=== PATIENT | female | born 1990 | race American Indian/Alaskan Native ===

== ENCOUNTER 2017-03-30 22:09 | Emergency (ER) | payer BC, MEDICAID ==
[2017-03-30] MEDS ORDERED: NACL 0.9% 1000 ML 1,000 ML IV ONE ×2 (22:36→22:47)
[2017-03-30] MEDS ORDERED: ZOFRAN IV ONE ×2 (22:36→23:36)
--- NOTE | 2017-03-30 22:52 | Emergency Department Report ---
ED HPI - General Chief complaint: Vaginal Bleeding Stated complaint: VAGINAL BLEEDING Time Seen by Provider: 03/30/17 22:17 Source: patient, EMS Mode of arrival: Stretcher Limitations: Other - History of Present Illness Initial comments: 26-year-old female with no septic in past medical history presents to Hospital complaints of continued nausea and vomiting and intermittent lower abdominal cramping 2 days. Patient was seen at [facility] in [place] over the weekend for an elective . Patient states she did receive an ultrasound and she estimates that she was about 5 weeks . Patient was given several doses of Cytotec. She took one tablet while in the clinic on the and then took 4 pills intravaginally on the . Patient states she has mild increase in bleeding and cramping of one large clot. Since then patient has had minimal lower abdominal cramping and intermittent spotting. Patient complains of continued nausea, vomiting, and by mouth intake decrease since she has been . Symptoms have worsened slightly since taking Cytotec. Mild suprapubic pressure reported at this time. She has not been able to eat or drink much due to nausea and vomiting. This is patient's fifth . She has 2 children, history of one miscarriage, and this is her second elective . - Related Data Previous Rx's Medication Instructions Recorded Last Taken Type Potassium Chloride [K-Dur] 20 meq PO BID #6 tab 03/31/17 Unknown Rx Promethazine [Phenergan] 25 mg AR Q6HR PRN #20 supp.rect 03/31/17 Unknown Rx Allergies Allergy/AdvReac Type Severity Reaction Status Date / Time No Known Allergies Allergy Verified 01/24/14 14:29 ED Review of Systems ROS: Stated complaint: VAGINAL BLEEDING Other details as noted in HPI Comment: All other systems reviewed and negative Other: Constitutional: No fevers chills Eyes: No eye pain visual changes ENT: No ear pain or throat pain Neck: Denies pain Respiratory: Denies cough wheezing shortness of breath Cardiovascular: Denies chest pain, palpitations, syncope GI:as per hpi : as per hpi Musculoskeletal: Denies back pain Skin: Denies rash, lesions, erythema Neurologic: Denies headache, numbness, weakness Psychiatric: Denies suicidal ideation, hallucinations ED Past Medical Hx - Past Medical History Previous Medical History?: No Hx Hypertension: No Hx Diabetes: No Hx Deep Vein Thrombosis: No Hx Renal Disease: No Hx Sickle Cell Disease: No Hx Seizures: No Hx Asthma: No Hx HIV: No - Surgical History Past Surgical History?: Yes Additional Surgical History: - Social History Smoking Status: Never Smoker Substance Use Type: None - Medications Home Medications: Home Medications Medication Instructions Recorded Confirmed Last Taken Type Potassium Chloride [K-Dur] 20 meq PO BID #6 tab 03/31/17 Unknown Rx Promethazine [Phenergan] 25 mg AR Q6HR PRN #20 supp.rect 03/31/17 Unknown Rx ED Physical Exam - General Limitations: Other - Other Other exam information: General: No limitations, patient is alert in no acute distress Head exam: Atraumatic, normocephalic Eyes exam: Normal appearance ENT: I mucous membrane Neck exam: Normal inspection, full range of motion, no meningismus nontender Respiratory exam: Clear to auscultation bilateral, no wheezes, rales, crackles Cardiovascular: Mild tachycardia regular rhythm Abdomen: Soft, nondistended, mild suprapubic tenderness, with normal bowel sounds, no rebound, or guarding Extremity: Full range of motion normal inspection no deformity Back: Normal Inspection, full range of motion, no tenderness Neurologic: Alert, oriented x3, cranial nerves intact, no motor or sensory deficit Psychiatric: normal affect, normal mood Skin: Warm, dry, intact ED Course Vital Signs 03/30/17 03/30/17 03/30/17 22:12 22:15 22:31 Pulse Rate 101 H 98 H Respiratory 18 24 20 Rate Blood Pressure O2 Sat by Pulse 100 100 100 Oximetry 03/30/17 03/30/17 03/30/17 22:45 23:00 23:05 Pulse Rate 102 H 89 Respiratory 23 22 18 Rate Blood Pressure 121/78 O2 Sat by Pulse 100 100 98 Oximetry 03/30/17 03/30/17 03/31/17 23:15 23:30 00:19 Pulse Rate 84 88 84 Respiratory 18 27 H 13 Rate Blood Pressure 117/84 120/76 120/76 O2 Sat by Pulse 100 100 100 Oximetry 03/31/17 03/31/17 03/31/17 00:30 00:45 01:00 Pulse Rate 99 H 83 81 Respiratory 19 15 12 Rate Blood Pressure 123/82 128/88 132/83 O2 Sat by Pulse 100 100 100 Oximetry 06/03/31/17 03/31/17 01:15 01:30 01:45 Pulse Rate 89 87 98 H Respiratory 18 11 L 21 Rate Blood Pressure 118/75 131/84 126/83 O2 Sat by Pulse 100 100 100 Oximetry 03/31/17 03/31/17 03/31/17 02:00 02:15 02:30 Pulse Rate 95 H 96 H 96 H Respiratory 16 18 19 Rate Blood Pressure 116/77 114/75 107/80 O2 Sat by Pulse 100 100 100 Oximetry 03/31/17 02:45 Pulse Rate 102 H Respiratory 13 Rate Blood Pressure 112/78 O2 Sat by Pulse 100 Oximetry - Reevaluation(s) Reevaluation #1: 03/30/17 22:51 Zofran and normal saline initiated ultrasound and labs pending Reevaluation #2: 03/31/17 02:14 pt continues to feel nauseated after zofran 4 mg. Phenergan AR ordered Reevaluation #3: 03/31/17 04:35 Patient feeling better after receiving Phenergan AR. Nausea is resolved. Tolerating by mouth. Received total of 3 L of normal saline - Consultations Consultation #1: 03/31/17 02:14 case d/w with Dr Ivy cash application representative obstetrician and gynaecologist. advises to try to control gi sx and hydrate. No indication for obstetrician and gynaecologist surgical intervention ED Medical Decision Making - Lab Data Result diagrams: 03/30/17 22:40 03/30/17 22:40 Lab Results 03/30/17 03/30/17 03/30/17 Range/Units 22:40 22:40 22:40 WBC 7.5 (4.5-11.0) K/mm3 RBC 4.81 (3.65-5.03) M/mm3 Hgb 14.4 H (10.1-14.3) gm/dl Hct 41.1 (30.3-42.9) % MCV 86 (79-97) fl MCH 30 (28-32) pg MCHC 35 H (30-34) % RDW 13.1 L (13.2-15.2) % Plt Count 331 (140-440) K/mm3 Lymph % (Auto) 16.7 (13.4-35.0) % [place] % (Auto) 8.0 H (0.0-7.3) % Eos % (Auto) 0.1 (0.0-4.3) % Baso % (Auto) 0.6 (0.0-1.8) % Lymph # 1.3 (1.2-5.4) K/mm3 [place] # 0.6 (0.0-0.8) K/mm3 Eos # 0.0 (0.0-0.4) K/mm3 Baso # 0.0 (0.0-0.1) K/mm3 Seg Neutrophils % 74.6 H (40.0-70.0) % Seg Neutrophils # 5.6 (1.8-7.7) K/mm3 Sodium (137-145) mmol/L Potassium (3.6-5.0) mmol/L Chloride (98-107) mmol/L Carbon Dioxide (22-30) mmol/L Anion Gap mmol/L BUN (7-17) mg/dL Creatinine (0.7-1.2) mg/dL Estimated GFR ml/min BUN/Creatinine Ratio % Glucose (65-100) mg/dL Calcium (8.4-10.2) mg/dL Magnesium (1.7-2.3) mg/dL Total Bilirubin (0.1-1.2) mg/dL Direct Bilirubin (0-0.2) mg/dL Indirect Bilirubin mg/dL AST (5-40) units/L ALT (7-56) units/L Alkaline Phosphatase (35-129) units/L Total Protein (6.3-8.2) g/dL Albumin (3.9-5) g/dL Albumin/Globulin Ratio % Lipase (13-60) units/L HCG, Quant 9106 H (0-4) mIU/mL Urine Color (Yellow) Urine Turbidity (Clear) Urine pH (5.0-7.0) Ur Specific Mitchell (1.003-1.030) Urine Protein (Negative) mg/dL Urine Glucose (UA) (Negative) mg/dL Urine Ketones (Negative) mg/dL Urine Blood (Negative) Urine Nitrite (Negative) Urine Bilirubin (Negative) Urine Urobilinogen (<2.0) mg/dL Ur Leukocyte Esterase (Negative) Urine WBC (Auto) (0.0-6.0) /HPF Urine RBC (Auto) (0.0-6.0) /HPF U Epithel Cells (Auto) (0-13.0) /HPF Urine Mucus /HPF Blood Type O POSITIVE Antibody Screen TNR BETH Antibody Screen Negative 03/30/17 03/30/17 03/30/17 Range/Units 22:40 22:40 22:40 WBC (4.5-11.0) K/mm3 RBC (3.65-5.03) M/mm3 Hgb (10.1-14.3) gm/dl Hct (30.3-42.9) % MCV (79-97) fl MCH (28-32) pg MCHC (30-34) % RDW (13.2-15.2) % Plt Count (140-440) K/mm3 Lymph % (Auto) (13.4-35.0) % [place] % (Auto) (0.0-7.3) % Eos % (Auto) (0.0-4.3) % Baso % (Auto) (0.0-1.8) % Lymph # (1.2-5.4) K/mm3 [place] # (0.0-0.8) K/mm3 Eos # (0.0-0.4) K/mm3 Baso # (0.0-0.1) K/mm3 Seg Neutrophils % (40.0-70.0) % Seg Neutrophils # (1.8-7.7) K/mm3 Sodium 135 L (137-145) mmol/L Potassium 2.8 L* (3.6-5.0) mmol/L Chloride 91.8 L (98-107) mmol/L Carbon Dioxide 16 L (22-30) mmol/L Anion Gap 30 mmol/L BUN 24 H (7-17) mg/dL Creatinine 0.7 (0.7-1.2) mg/dL Estimated GFR > 60 ml/min BUN/Creatinine Ratio 34.28 % Glucose 97 (65-100) mg/dL Calcium 9.6 (8.4-10.2) mg/dL Magnesium 2.50 H (1.7-2.3) mg/dL Total Bilirubin 1.10 (0.1-1.2) mg/dL Direct Bilirubin 0.2 (0-0.2) mg/dL Indirect Bilirubin 0.9 mg/dL AST 11 (5-40) units/L ALT 12 (7-56) units/L Alkaline Phosphatase 43 (35-129) units/L Total Protein 8.1 (6.3-8.2) g/dL Albumin 4.9 (3.9-5) g/dL Albumin/Globulin Ratio 1.5 % Lipase 11 L (13-60) units/L HCG, Quant (0-4) mIU/mL Urine Color (Yellow) Urine Turbidity (Clear) Urine pH (5.0-7.0) Ur Specific Mitchell (1.003-1.030) Urine Protein (Negative) mg/dL Urine Glucose (UA) (Negative) mg/dL Urine Ketones (Negative) mg/dL Urine Blood (Negative) Urine Nitrite (Negative) Urine Bilirubin (Negative) Urine Urobilinogen (<2.0) mg/dL Ur Leukocyte Esterase (Negative) Urine WBC (Auto) (0.0-6.0) /HPF Urine RBC (Auto) (0.0-6.0) /HPF U Epithel Cells (Auto) (0-13.0) /HPF Urine Mucus /HPF Blood Type Antibody Screen BETH Antibody Screen 03/31/17 Range/Units 00:02 WBC (4.5-11.0) K/mm3 RBC (3.65-5.03) M/mm3 Hgb (10.1-14.3) gm/dl Hct (30.3-42.9) % MCV (79-97) fl MCH (28-32) pg MCHC (30-34) % RDW (13.2-15.2) % Plt Count (140-440) K/mm3 Lymph % (Auto) (13.4-35.0) % [place] % (Auto) (0.0-7.3) % Eos % (Auto) (0.0-4.3) % Baso % (Auto) (0.0-1.8) % Lymph # (1.2-5.4) K/mm3 [place] # (0.0-0.8) K/mm3 Eos # (0.0-0.4) K/mm3 Baso # (0.0-0.1) K/mm3 Seg Neutrophils % (40.0-70.0) % Seg Neutrophils # (1.8-7.7) K/mm3 Sodium (137-145) mmol/L Potassium (3.6-5.0) mmol/L Chloride (98-107) mmol/L Carbon Dioxide (22-30) mmol/L Anion Gap mmol/L BUN (7-17) mg/dL Creatinine (0.7-1.2) mg/dL Estimated GFR ml/min BUN/Creatinine Ratio % Glucose (65-100) mg/dL Calcium (8.4-10.2) mg/dL Magnesium (1.7-2.3) mg/dL Total Bilirubin (0.1-1.2) mg/dL Direct Bilirubin (0-0.2) mg/dL Indirect Bilirubin mg/dL AST (5-40) units/L ALT (7-56) units/L Alkaline Phosphatase (35-129) units/L Total Protein (6.3-8.2) g/dL Albumin (3.9-5) g/dL Albumin/Globulin Ratio % Lipase (13-60) units/L HCG, Quant (0-4) mIU/mL Urine Color Yellow (Yellow) Urine Turbidity Clear (Clear) Urine pH 5.0 (5.0-7.0) Ur Specific Mitchell 1.029 (1.003-1.030) Urine Protein 100 mg/dl (Negative) mg/dL Urine Glucose (UA) Neg (Negative) mg/dL Urine Ketones 80 (Negative) mg/dL Urine Blood Mod (Negative) Urine Nitrite Neg (Negative) Urine Bilirubin Neg (Negative) Urine Urobilinogen < 2.0 (<2.0) mg/dL Ur Leukocyte Esterase Neg (Negative) Urine WBC (Auto) 3.0 (0.0-6.0) /HPF Urine RBC (Auto) 7.0 (0.0-6.0) /HPF U Epithel Cells (Auto) 2.0 (0-13.0) /HPF Urine Mucus 3+ /HPF Blood Type Antibody Screen BETH Antibody Screen - Radiology Data Radiology results: report reviewed Transvaginal ultrasound: Concerning for in progress. Heterogeneous material within the endometrial canal. No IUP or adnexal masses. Possible left corpus luteum cyst measuring 1.3 cm - Differential Diagnosis nausea and vomiting in /hyperemesis, medication effect, Critical Care Time: No Critical care attestation.: If time is entered above; I have spent that time in minutes in the direct care of this critically ill patient, excluding procedure time. ED Disposition Clinical Impression: Nausea and vomiting during , Elective , Hypokalemia Disposition: DC-01 TO HOME OR SELFCARE Is pt being admited?: No Does the pt Need Aspirin: No Condition: Stable Instructions: Spontaneous Miscarriage (ED), Hyperemesis Gravidarum (ED), Hypokalemia (ED) Additional Instructions: Ultrasound shows that you are in the process of aborting your . You have been provided discharge diagnoses for spontaneous miscarriage since we do not have elective discharge instructions available. Please return if symptoms worsen as indicated by these instructions. Otherwise take the Phenergan and potassium pills as prescribed. Return if symptoms worsen you are unable to keep liquids, pills, or food down. Follow up with your DEVELOPMENT MANAGER clinic. Prescriptions: Potassium Chloride [K-Dur] 20 meq PO BID #6 tab Promethazine [Phenergan] 25 mg AR Q6HR PRN #20 supp.rect PRN Reason: Nausea And Vomiting Referrals: your, obstetrician and gynaecologist [Other] - 2-3 Days Time of Disposition: 04:40
[2017-03-30 23:13] LABS: Basophils % (Auto) 0.6 % (0.0-1.8); Eosinophils % (Auto) 0.1 % (0.0-4.3); Hematocrit 41.1 % (30.3-42.9); Hemoglobin 14.4 gm/dl (10.1-14.3); Mean Corpuscular HGB Conc 35 % (30-34); Mean Corpuscular Hemoglobin 30 pg (28-32); Mean Corpuscular Volume 86 fl (79-97); Platelet Count 331 K/mm3 (140-440); Red Blood Count 4.81 M/mm3 (3.65-5.03); Red Cell Distribution Width 13.1 % (13.2-15.2); White Blood Count 7.5 K/mm3 (4.5-11.0)
[2017-03-30 23:34] LABS: Albumin 4.9 g/dL (3.9-5); Albumin/Globulin Ratio 1.5 %; Bilirubin,Direct 0.2 mg/dL (0-0.2); Bilirubin,Indirect 0.9 mg/dL; Bilirubin,Total 1.1 mg/dL (0.1-1.2); Total Protein 8.1 g/dL (6.3-8.2)
[2017-03-30 23:52] LABS: Anion Gap 30 mmol/L; BUN/Creatinine Ratio 34.28; Blood Urea Nitrogen 24 mg/dL (7-17); Calcium 9.6 mg/dL (8.4-10.2); Carbon Dioxide 16 mmol/L (22-30); Chloride 91.8 mmol/L (98-107); Glucose 97 mg/dL (65-100); Sodium 135 mmol/L (137-145)
[2017-03-30 23:55] LABS: Potassium 2.8 mmol/L (3.6-5.0)
[2017-03-31] MEDS ORDERED: NACL 0.9% 1000 ML 1,000 ML IV ONE (00:12)
[2017-03-31] MEDS ORDERED: K-DUR PO ONE (00:12)
[2017-03-31 00:25] LABS: Bilirubin,Urine NEG (Negative); Blood,Urine MOD (Negative); Ketones,Urine 80 mg/dL (Negative); Leukocyte Esterase,Urine NEG (Negative); Mucus,Urine 3+ /HPF; Nitrite,Urine NEG (Negative); Urobilinogen,Urine < 2.0 mg/dL (<2.0)
--- NOTE | 2017-03-31 00:51 | Ultrasound Report ---
FINAL REPORT EXAM: US OB TRANSVAGINAL HISTORY: recent arbortion pill, n,v, bleeding, pain COMPARISON: None available. TECHNIQUE: Several real-time grayscale and color Doppler images were obtained. Transvaginal exam. FINDINGS: The uterus measures 9.6 x 6.2 x 8.0 centimeters. The uterus is retroverted. Endometrial stripe is thickened. This heterogeneous material within the endometrial canal. This could reflect in progress. No IUP or adnexal masses are demonstrated. Right ovary measures 2.5 x 1.0 x 2.3 centimeters. Left ovary measures 2.7 x 2.0 x 2.2 centimeters. Thick-walled ovarian cyst measuring 1.3 centimeters. This may reflect corpus luteum. There is gross vascular flow to the ovaries. IMPRESSION: Findings concerning for progress. There is heterogeneous material within the endometrial canal. No IUP or adnexal masses are demonstrated. Possible left corpus luteal cyst measuring 1.3 centimeters. Correlation with serial beta HCGs and followup exam is suggested.
[2017-03-31] MEDS ORDERED: PHENERGAN PR ONE (02:09)
[2017-03-31 05:47] VITALS: BP 106/68
--- NOTE | 2017-03-31 09:10 | Ultrasound Report ---
FINAL REPORT PROCEDURE: US OB \T\lt; = 14 WEEKS FETUS TECHNIQUE: Transabdominal grayscale and color imaging of the pelvis was performed. HISTORY: recent arbortion pill, n,v, bleeding, pain COMPARISON: None FINDINGS: The uterus measures 9 x 4.3 x 5.3 centimeters transabdominally. The endometrial stripe is 2.1 centimeters thick, heterogeneous. There is no free fluid. The ovaries were not visualized transabdominally. IMPRESSION: Thickened heterogeneous endometrial stripe without identified yolk sac/ pole. Missed /retained products of conception/ in progress are not excluded. Ovaries were not seen. Please see transvaginal report. Close clinical follow-up to include serial beta HCGs as well as follow-up ultrasound is recommended.
== END 2017-03-31 05:00 | disposition home or self-care (01) ==
LOC: ED 22:09
DX: O21.9 Vomiting of pregnancy, unspecified (principal); O07.4 Failed attempted termination of pregnancy without complication; E87.6 Hypokalemia
CPT/HCPCS: 36415; 76801; 76817; 80048; 80074; 81001; 82962; 83690; 83735; 84702; 85025; 86850; 86900; 86901; 93005; 93010; 96361; 96374; 96376; 99285; J2405; J7030

== ENCOUNTER 2019-10-08 08:32 | Emergency (ER) | payer BC, MEDICAID ==
[2019-10-08 08:45] VITALS: BP 123/89
[2019-10-08 09:57] LABS: Alanine Aminotransferase 11 units/L (7-56); Albumin 4.2 g/dL (3.9-5); BUN/Creatinine Ratio 14; Blood Urea Nitrogen 7 mg/dL (7-17); Calcium 8.8 mg/dL (8.4-10.2); Hemolysis Index 2
[2019-10-08 10:05] LABS: Eosinophils # (Auto) 0.1 K/mm3 (0.0-0.4); Eosinophils % (Auto) 4.1 % (0.0-4.3); Hematocrit 39.1 % (30.3-42.9); Hemoglobin 13.1 gm/dl (10.1-14.3); Lymphocytes # (Auto) 1.2 K/mm3 (1.2-5.4); Lymphocytes % (Auto) 35.7 % (13.4-35.0); Mean Corpuscular HGB Conc 33 % (30-34); Mean Corpuscular Volume 88 fl (79-97); Monocytes # (Auto) 0.3 K/mm3 (0.0-0.8); Platelet Count 276 K/mm3 (140-440); Red Blood Count 4.43 M/mm3 (3.65-5.03); Red Cell Distribution Width 14.4 % (13.2-15.2)
[2019-10-08 10:21] LABS: Bilirubin,Urine NEG (Negative); Blood,Urine NEG (Negative); Color,Urine Yellow (Yellow); Mucus,Urine FEW /HPF; Protein,Urine <15 mg/dL mg/dL (Negative); Urobilinogen,Urine < 2.0 mg/dL (<2.0)
[2019-10-08 10:23] LABS: HCG Qualitative,Urine Negative (Negative)
[2019-10-08] MEDS ORDERED: DICYCLOMINE 20 MG TAB PO ONE (11:14)
--- NOTE | 2019-10-08 11:16 | Emergency Department Report ---
HPI - General Chief Complaint: Abdominal Pain Time Seen by Provider: 10/08/19 10:53 - HPI HPI: 29-year-old female presents to the emergency department with complaint of a 5-6 day history of some right-sided abdominal cramping pain. Patient says that she finished with her menstrual cycle a few days ago. She denies any dysuria, vaginal discharge, fever but did have an episode of nausea with vomiting this morning. She tried some Advil for her symptoms without any relief. Otherwise she denies any past history. No PCP or CHART READER. ED Past Medical Hx - Past Medical History Hx Hypertension: No Hx Diabetes: No Hx Deep Vein Thrombosis: No Hx Renal Disease: No Hx Sickle Cell Disease: No Hx Seizures: No Hx Asthma: No Hx HIV: No - Surgical History Additional Surgical History: - Social History Smoking Status: Never Smoker - Medications Home Medications: Home Medications Medication Instructions Recorded Confirmed Last Taken Type Potassium Chloride [K-Dur] 20 meq PO BID #6 tab 03/31/17 Unknown Rx Promethazine [Phenergan] [address] Q6HR PRN #20 supp.rect 03/31/17 Unknown Rx Dicyclomine [Bentyl] 10 mg PO TID PRN #20 capsule 10/08/19 Unknown Rx ED Review of Systems ROS: Stated complaint: ABDOMINAL CRAMPS Other details as noted in HPI Comment: All other systems reviewed and negative Constitutional: denies: chills, fever Respiratory: denies: shortness of breath Cardiovascular: denies: chest pain Gastrointestinal: abdominal pain, nausea, vomiting. denies: diarrhea Genitourinary: denies: dysuria, discharge Musculoskeletal: denies: back pain, arthralgia Physical Exam - Physical Exam Vital Signs: Vital Signs 10/08/19 08:43 Temperature 97.7 F Pulse Rate 75 Respiratory 16 Rate Blood Pressure 123/89 O2 Sat by Pulse 100 Oximetry Physical Exam: GENERAL: The patient is well-developed well-nourished. HEENT: Normocephalic. Atraumatic. Patient has moist mucous membranes. EYES: Extraocular motions are intact. NECK: Supple. Trachea is midline CHEST/LUNGS: Clear to auscultation. There is no respiratory distress noted. HEART/CARDIOVASCULAR: Regular. There is no tachycardia. ABDOMEN: Abdomen is soft. Mild left lower quadrant abdominal tenderness to palpation. No guarding. Patient has normal bowel sounds. There is no abdominal distention. SKIN: Skin is warm and dry. NEURO: The patient is awake, alert, and oriented. The patient is cooperative. The patient has no focal neurologic deficits. Normal speech. MUSCULOSKELETAL: There is no tenderness or deformity. There is no evidence of acute injury. ED Course Vital Signs 10/08/19 08:43 Temperature 97.7 F Pulse Rate 75 Respiratory 16 Rate Blood Pressure 123/89 O2 Sat by Pulse 100 Oximetry ED Medical Decision Making - Lab Data Result diagrams: 10/08/19 08:52 10/08/19 08:52 - Radiology Data Radiology results: image reviewed interpreted by me: Abdominal x-ray shows nonspecific bowel gas - Medical Decision Making This patient presents to the emergency department with some lower abdominal and/or pelvic cramping that has been going on for the better part of a week. Her labs have been unremarkable. CBC, metabolic panel, urinalysis, . Abdominal x-ray shows nonspecific nonobjective bowel gas. She was given a dose of Bentyl and upon reevaluation she is feeling improved. Vital signs stable throughout her ED course. The patient be discharged home with a perception for Bentyl, referrals for primary care and gastroenterology. She will return to the ER with any worsening of her symptoms or any acute distress. - Differential Diagnosis gastroenteritis, , gas pains, colitis Critical Care Time: No Critical care attestation.: If time is entered above; I have spent that time in minutes in the direct care of this critically ill patient, excluding procedure time. ED Disposition Clinical Impression: Abdominal cramping Disposition: - TO HOME OR SELFCARE Is pt being admited?: No Condition: Stable Instructions: Abdominal Pain (ED) Additional Instructions: Please follow-up with a primary care physician in the next few days. I'm also giving you a referral for a local assistant head cashier, Dr. Pollack, to follow up regarding her abdominal pain. Return to the emergency Department with any worsening of your symptoms or any acute distress. Prescriptions: Dicyclomine [Bentyl] 10 mg PO TID PRN #20 capsule PRN Reason: Pain , Severe (7-10) Referrals: ERVIN MCCARTNEY MD [Staff Physician] - 3-5 Days [facility] [Outside] - 3-5 Days RYAN POLLACK MD [Staff Physician] - 3-5 Days Time of Disposition: 11:56
--- NOTE | 2019-10-08 11:39 | XRay Report ---
ABDOMEN 2 VIEW(S) INDICATION / CLINICAL INFORMATION: abd pain. COMPARISON: None available. FINDINGS: TUBES / LINES: None. BOWEL GAS PATTERN: Moderate colonic stool. No bowel distention or suspicious calcification. ADDITIONAL FINDINGS: No free air. IMPRESSION: Unremarkable abdomen. Signer Name: Joselo Marie MD Signed: 10/08/2019 11:35 AM Workstation Name: [id number]
== END 2019-10-08 12:16 | disposition home or self-care (01) ==
LOC: ED 08:32
DX: R10.9 Unspecified abdominal pain (principal); Z79.899 Other long term (current) drug therapy
CPT/HCPCS: 36415; 74019; 80053; 81001; 81025; 85025

== ENCOUNTER 2019-11-17 10:52 | Emergency (ER) | payer BC ==
[2019-11-17 11:06] VITALS: BP 117/83
--- NOTE | 2019-11-17 12:18 | Emergency Department Report ---
Chief Complaint: Head Injury Stated Complaint: HIT HEAD Time Seen by Provider: 11/17/19 12:07 - HPI History of Present Illness: Patient is a 29-year-old F Stateless female who struck her head on a air conditioning unit at her child's daycare center this morning. Patient states that she briefly felt dizzy but now does has a numb sensation on her forehead. She denies nausea vomiting severe headache uncoordinated gait or syncope. - ROS Review of Systems: All other systems are reviewed and are negative - Exam Vital Signs: Vital Signs 11/17/19 11:04 Temperature 98.2 F Pulse Rate 82 Respiratory 16 Rate Blood Pressure 117/83 O2 Sat by Pulse 100 Oximetry Physical Exam: Patient is alert and oriented x3 in no acute distress. There is no actual physical signs of severe closed head injury. There is no contusion to the forehead or swelling. Patient has very minimal tenderness over the frontal region. No depressed skull fractures. Patient has a normal gait. MSE screening note: Focused history and physical exam performed. Due to findings the following was ordered: ED Medical Decision Making - Medical Decision Making Patient suffered a minor head injury this morning. Patient has no actual medical emergent condition at this time. Is been suggested the patient take Tylenol [id number] as needed and patient will be discharged to follow-up with community resources. ED Disposition for MSE Clinical Impression: Closed head injury Qualifiers: Encounter type: initial encounter Qualified Code(s): S09.90XA - Unspecified injury of head, initial encounter Disposition: MED SCREENING EXAM-LEFT Is pt being admited?: No Does the pt Need Aspirin: No Condition: Stable Referrals: PEYTON OSBORN MD [Referring] - 3-5 Days Time of Disposition: 12:17
== END 2019-11-17 12:24 | disposition left against medical advice (07) ==
LOC: ED 10:52
DX: S09.90XA Unspecified injury of head, initial encounter (principal); R42 Dizziness and giddiness; R20.0 Anesthesia of skin; X58.XXXA Exposure to other specified factors, initial encounter; Y93.89 Activity, other specified; Y92.89 Other specified places as the place of occurrence of the external cause; Y99.8 Other external cause status
CPT/HCPCS: 99281

== ENCOUNTER 2019-11-24 21:24 | Emergency (ER) | payer BC ==
[2019-11-24 21:41] VITALS: BP 142/99
--- NOTE | 2019-11-24 22:03 | Emergency Department Report ---
Blank Doc - Documentation Documentation: 29-year-old female that presents with chest pain. Deneis any radiation. denies any SOB. This initial assessment/diagnostic orders/clinical plan/treatment(s) is/are subject to change based on patient's health status, clinical progression and re- assessment by fellow clinical providers in the ED. Further treatment and workup at subsequent clinical providers discretion. Patient/guardians urged not to elope from the ED as their condition may be serious if not clinically assessed and managed. Initial orders include: 1- Patient sent to [facility] for further evaluation and treatment 2- xrays 3- EKG
--- NOTE | 2019-11-24 22:51 | XRay Report ---
CHEST 2 VIEWS INDICATION: cp. COMPARISON: none FINDINGS: Support devices: None. Heart: Within normal limits. Lungs: No acute air space or interstitial disease. Pleura: No significant pleural effusion. No pneumothorax. Additional findings: None. IMPRESSION: 1. No acute findings. Signer Name: Dimitri Sonw MD Signed: 11/24/2019 10:46 PM Workstation Name: [id number]
--- NOTE | 2019-11-25 00:53 | Emergency Department Report ---
Chief Complaint: Chest Pain Stated Complaint: CHEST AND HEAD PAIN Time Seen by Provider: 11/24/19 22:02 - HPI History of Present Illness: 29-year-old -Surinames[place] female presents to the emergency room for scalp tenderness to the right top of head and intermittent left chest pain x2 days. Patient states that she had 2 episodes of sharp pain that lasts less than 10 seconds. Patient denied any radiation denied any nausea vomiting denied any weaknesses no blurred vision. Patient taken nothing for pain. Patient does admit to smoking weed. Patient denies taking any long-term medications no known drug allergies no past medical history. - Exam Vital Signs: Vital Signs 11/24/19 21:39 Temperature 98.4 F Pulse Rate 70 Respiratory 18 Rate Blood Pressure 142/99 O2 Sat by Pulse 100 Oximetry MSE screening note: Focused history and physical exam performed. Due to findings the following was ordered: 29-year-old -Surinames[place] female presents to the emergency room for scalp tenderness to the right top of head and intermittent left chest pain x2 days. Patient states that she had 2 episodes of sharp pain that lasts less than 10 seconds. Patient denied any radiation denied any nausea vomiting denied any weaknesses no blurred vision. Patient taken nothing for pain. Patient does admit to smoking weed. Patient denies taking any long-term medications no known drug allergies no past medical history. EKG is normal. chest x-ray negative for any acute findings. Discussed the patient she can take Tylenol or ibuprofen for scalp tenderness and pain. Patient is to follow back up with her primary care provider. ED Disposition for [facility] [place] Clinical Impression: Scalp tenderness, Atypical chest pain Disposition: MED SCREENING EXAM-LEFT Is pt being admited?: No Does the pt Need Aspirin: No Condition: Stable Instructions: Chest Pain (ED) Additional Instructions: EKG is normal. chest x-ray negative for any acute findings. Discussed the patient she can take Tylenol or ibuprofen for scalp tenderness and pain. Patient is to follow back up with her primary care provider. Referrals: PEYTON OSBORN MD [Primary Care Provider] - 3-5 Days
== END 2019-11-25 01:04 | disposition left against medical advice (07) ==
LOC: ED 21:24
DX: R20.0 Anesthesia of skin (principal); R07.89 Other chest pain
CPT/HCPCS: 71046; 93005; 93010

== ENCOUNTER 2020-01-17 01:49 | Emergency (ER) | payer BC ==
[2020-01-17 01:56] VITALS: BP 119/82
[2020-01-17] MEDS ORDERED: IBUPROFEN 800 MG TAB PO ONE (02:50)
--- NOTE | 2020-01-17 02:53 | Emergency Department Report ---
- General Chief Complaint: Wound/Laceration Stated Complaint: LIP BUSTED Time Seen by Provider: 01/17/20 02:36 Source: patient Mode of arrival: Ambulatory Limitations: No Limitations - History of Present Illness Initial Comments: Ms. Wallis is a 29-year-old -[place] female who presents for left lower right lower lip laceration. She states she fell and bit her lip wound is less than 1 cm bleeding was controlled by direct pressure wound does not cross the vermilion border. However "patient is requesting 1 suture. This is a reasonable request. There is no deep laceration no deformity Onset/Timin -: hour(s), month(s), This evening Location: face Place: home, outdoors Patient Tetanus UTD: Yes Context: accidental Associated Symptoms: none, pain - Related Data Previous Rx's Medication Instructions Recorded Last Taken Type Potassium Chloride [K-Dur] 20 meq PO BID #6 tab 03/31/17 Unknown Rx Promethazine [Phenergan] 25 mg IN Q6HR PRN #20 supp.rect 03/31/17 Unknown Rx Dicyclomine [Bentyl] 10 mg PO TID PRN #20 capsule 10/08/19 Unknown Rx Ibuprofen [Motrin 800 MG tab] 800 mg PO Q8HR PRN #30 tablet 01/17/20 Unknown Rx Allergies Allergy/AdvReac Type Severity Reaction Status Date / Time No Known Allergies Allergy Verified 01/24/14 14:29 ED Review of Systems ROS: Stated complaint: LIP BUSTED Other details as noted in HPI Constitutional: denies: chills, fever Eyes: denies: eye pain, eye discharge, vision change ENT: denies: ear pain, throat pain Respiratory: denies: cough, shortness of breath, wheezing Cardiovascular: denies: chest pain, palpitations Endocrine: no symptoms reported Gastrointestinal: denies: abdominal pain, nausea, diarrhea Genitourinary: denies: urgency, dysuria, discharge Musculoskeletal: denies: back pain, joint swelling, arthralgia Skin: denies: rash, lesions Neurological: denies: headache, weakness, paresthesias Psychiatric: denies: anxiety, depression Hematological/Lymphatic: denies: easy bleeding, easy bruising ED Past Medical Hx - Past Medical History Previous Medical History?: No Hx Hypertension: No Hx Diabetes: No Hx Deep Vein Thrombosis: No Hx Renal Disease: No Hx Sickle Cell Disease: No Hx Seizures: No Hx Asthma: No Hx HIV: No - Surgical History Past Surgical History?: Yes Additional Surgical History: - Social History Smoking Status: Current Every Day Smoker - Medications Home Medications: Home Medications Medication Instructions Recorded Confirmed Last Taken Type Potassium Chloride [K-Dur] 20 meq PO BID #6 tab 03/31/17 Unknown Rx Promethazine [Phenergan] 25 mg IN Q6HR PRN #20 supp.rect 03/31/17 Unknown Rx Dicyclomine [Bentyl] 10 mg PO TID PRN #20 capsule 10/08/19 Unknown Rx Ibuprofen [Motrin 800 MG tab] 800 mg PO Q8HR PRN #30 tablet 01/17/20 Unknown Rx ED Physical Exam - General Limitations: No Limitations General appearance: alert, in no apparent distress - Head Head exam: Present: normocephalic, normal inspection - Expanded Head Exam Expanded Head exam: Present: laceration, abrasion, contusion, general tenderness. Absent: hematoma, racoon eyes, joseph's sign, tenderness of temporal artery, CSF rhinorrhea - Eye Eye exam: Present: normal appearance, PERRL, EOMI. Absent: scleral icterus, conjunctival injection Pupils: Present: normal accommodation, irregular - ENT ENT exam: Present: normal exam, normal orophraynx, mucous membranes moist, normal external ear exam - Neck Neck exam: Present: normal inspection - Respiratory Respiratory exam: Present: normal lung sounds bilaterally. Absent: respiratory distress, wheezes, rhonchi, chest wall tenderness - Cardiovascular Cardiovascular Exam: Present: regular rate, normal rhythm, normal heart sounds. Absent: systolic murmur, diastolic murmur, rubs, gallop - GI/Abdominal GI/Abdominal exam: Present: soft, normal bowel sounds. Absent: distended, tenderness, rebound, organomegaly, mass, bruit, pulsatile mass, hernia - Extremities Exam Extremities exam: Present: normal inspection, full ROM, normal capillary refill. Absent: tenderness - Back Exam Back exam: Present: normal inspection, full ROM. Absent: tenderness, CVA tenderness (R), CVA tenderness (L), muscle spasm - Neurological Exam Neurological exam: Present: alert, oriented X3, CN II-XII intact, normal gait, reflexes normal. Absent: motor sensory deficit - Psychiatric Psychiatric exam: Present: normal affect, normal mood - Skin Skin exam: Present: warm, dry, intact, normal color. Absent: rash ED Course Vital Signs 01/17/20 01:51 Temperature 98.1 F Pulse Rate 98 H Respiratory 18 Rate Blood Pressure 119/82 O2 Sat by Pulse 100 Oximetry - Laceration /Wound Repair Right Lower Face Wound Location: mouth (lip ) Wound Length (cm): 1 (less than 1 cm ) Wound's Depth, Shape: superficial Wound Explored: clean Irrigated w/ Saline (ccs): 10 Betadine Prep?: No Anesthesia: 1% Lidocaine Wound Debrided: minimal Wound Repaired With: sutures Suture Size/Type: 6:0, nylon Layer Closure?: No Sterile Dressing Applied?: No Progress: Right lower lip laceration. Wound cleaned with sterile saline x10 cc anesthesia with 1% lidocaine x0.5 cc wound closed with Vicryl 4.01 suture. Edges are well approximated wound does not cross the vermilion border. Patient will follow-up with primary care in 2 days for wound check. Will DC to home for NSAIDs for pain, last tetanus 5 years ago., Patient DC'd home at this time ED Medical Decision Making - Medical Decision Making Lower lip laceration repaired with sutures x1 , patient tolerated procedure with minimal distress. Edges are well approximated . See procedure note patient given wound care instructions. Patient will follow-up with PCP in 2 to 3 days for wound check. Patient verbalizes agreement and understanding with discharge plan patient will be DC'd to home in stable condition at this time Critical care attestation.: If time is entered above; I have spent that time in minutes in the direct care of this critically ill patient, excluding procedure time. ED Disposition Clinical Impression: Laceration of lip Qualifiers: Encounter type: initial encounter Qualified Code(s): S01.511A - Laceration wit hout foreign body of lip, initial encounter Disposition: DC-01 TO HOME OR SELFCARE Is pt being admited?: No Does the pt Need Aspirin: No Condition: Stable Instructions: Laceration (ED) Prescriptions: Ibuprofen [Motrin 800 MG tab] 800 mg PO Q8HR PRN #30 tablet PRN Reason: pain Referrals: MASON PAINTING MD [Staff Physician] - 3-5 Days Forms: Work/School Release Form(ED) Time of Disposition: 03:26
== END 2020-01-17 03:37 | disposition home or self-care (01) ==
LOC: ED 01:49
DX: S01.511A Laceration without foreign body of lip, initial encounter (principal); F17.200 Nicotine dependence, unspecified, uncomplicated; Z79.1 Long term (current) use of non-steroidal anti-inflammatories (NSAID); Z79.899 Other long term (current) drug therapy; Z98.890 Other specified postprocedural states; W19.XXXA Unspecified fall, initial encounter; Y93.89 Activity, other specified; Y92.009 Unspecified place in unspecified non-institutional (private) residence as the place of occurrence of the external cause; Y99.8 Other external cause status

== ENCOUNTER 2020-12-20 03:21 | Emergency (ER) | payer BC ==
[2020-12-20] MEDS ORDERED: FAMOTIDINE 20 MG TAB PO ONE (03:54)
[2020-12-20] MEDS ORDERED: METOCLOPRAMIDE 10 MG TAB PO ONE (03:54)
[2020-12-20] MEDS ORDERED: LIDOCAINE VISCOUS 2% 15 ML ORAL LIQD PO ONE (03:56)
[2020-12-20] MEDS ORDERED: ALUM-MAG HYDROXIDE-SIMETHICONE 200-200-20MG/5ML ORAL LIQD 30 ML PO ONE ×2 (03:56→03:58)
[2020-12-20 04:41] LABS: Basophils % (Auto) 0.6 % (0.0-1.8); Eosinophils # (Auto) 0.1 K/mm3 (0.0-0.4); Eosinophils % (Auto) 1.5 % (0.0-4.3); Hematocrit 31.5 % (30.3-42.9); Hemoglobin 11.1 gm/dl (10.1-14.3); Lymphocytes % (Auto) 24.9 % (13.4-35.0); Mean Corpuscular HGB Conc 35 % (30-34); Mean Corpuscular Volume 90 fl (79-97); Monocytes # (Auto) 0.6 K/mm3 (0.0-0.8); Monocytes % (Auto) 7.3 % (0.0-7.3); Platelet Count 238 K/mm3 (140-440); Red Blood Count 3.52 M/mm3 (3.65-5.03); Red Cell Distribution Width 13.4 % (13.2-15.2)
[2020-12-20 04:46] LABS: Bilirubin,Urine NEG (Negative); Blood,Urine NEG (Negative); Color,Urine Yellow (Yellow); Mucus,Urine FEW /HPF; Protein,Urine <15 mg/dL mg/dL (Negative); RBC,Urine < 1.0 /HPF (0.0-6.0); Urobilinogen,Urine < 2.0 mg/dL (<2.0)
[2020-12-20 05:02] LABS: Alanine Aminotransferase 12 units/L (7-56); Albumin 3.6 g/dL (3.9-5); Blood Urea Nitrogen 9 mg/dL (7-17); Calcium 8.4 mg/dL (8.4-10.2); Hemolysis Index 0
[2020-12-20 05:04] LABS: BUN/Creatinine Ratio 23
--- NOTE | 2020-12-20 06:14 | Emergency Department Report ---
ED N/V/D HPI - General Chief complaint: Abdominal Pain Stated complaint: VOMITTING BLOOD/23WKS PREG/SORE THROAT Source: patient Mode of arrival: Ambulatory Limitations: No Limitations - History of Present Illness Initial comments: Patient is a A0 30-year-old -Maldivian female with no past medical history and who is approximately 23 weeks gestation presents to the ED with acute onset persistent nausea and vomiting and burning pain in the throat after having intractable nausea and vomiting. Patient states that she was asleep when she started having nausea and vomiting and that the emesis tasted bitter and left a sour taste in her mouth and thereafter she started having sore throat. Patient denies abdominal pain, vaginal discharge, vaginal bleeding, chest pain, shortness of breath, fever, chills, cough, change in vision, low back pain, or diarrhea. MD complaint: nausea, vomiting, other (GERD complications) -: Sudden, hour(s) (2) Description of Vomiting: food contents, watery Associated Abdominal Pain: No Location: epigastric Radiation: chest, other (throat) Severity: moderate Pain Scale: 5 Quality: aching, other (burning) Consistency: constant Improves with: none Worsens with: eating, vomiting Context: other (GERD; ) Associated Symptoms: denies other symptoms. denies: myalgias, chest pain, cough, diaphoresis, fever/chills, headaches, loss of appetite, malaise, nausea/vomiting, rash, dysuria, shortness of breath, syncope, weakness, other - Related Data Previous Rx's Medication Instructions Recorded Last Taken Type Potassium Chloride [K-Dur] 20 meq PO BID #6 tab 03/31/17 Unknown Rx Promethazine [Phenergan] 25 mg GA Q6HR PRN #20 supp.rect 03/31/17 Unknown Rx Dicyclomine [Bentyl] 10 mg PO TID PRN #20 capsule 10/08/19 Unknown Rx Ibuprofen [Motrin 800 MG tab] 800 mg PO Q8HR PRN #30 tablet 01/17/20 Unknown Rx Famotidine [Pepcid] 20 mg PO Q12H #60 tablet 12/20/20 Unknown Rx Promethazine [Phenergan SUPPOS] 25 mg GA Q6HR PRN #15 supp.rect 12/20/20 Unknown Rx Promethazine [Phenergan] 25 mg PO Q6HR PRN #30 tab 12/20/20 Unknown Rx Allergies Allergy/AdvReac Type Severity Reaction Status Date / Time No Known Allergies Allergy Verified 01/24/14 14:29 ED Review of Systems ROS: Stated complaint: VOMITTING BLOOD/23WKS PREG/SORE THROAT Other details as noted in HPI Constitutional: denies: chills, fever Eyes: denies: eye pain, eye discharge, vision change ENT: throat pain. denies: ear pain Respiratory: denies: cough, shortness of breath, wheezing Cardiovascular: denies: chest pain, palpitations Endocrine: no symptoms reported Gastrointestinal: nausea, vomiting. denies: abdominal pain, diarrhea Genitourinary: denies: urgency, dysuria, discharge Musculoskeletal: denies: back pain, joint swelling, arthralgia Skin: denies: rash, lesions Neurological: denies: headache, weakness, paresthesias Psychiatric: denies: anxiety, depression Hematological/Lymphatic: denies: easy bleeding, easy bruising ED Past Medical Hx - Past Medical History Hx Hypertension: No Hx Diabetes: No Hx Deep Vein Thrombosis: No Hx Renal Disease: No Hx Sickle Cell Disease: No Hx Seizures: No Hx Asthma: No Hx HIV: No - Surgical History Additional Surgical History: - Social History Smoking Status: Never Smoker - Medications Home Medications: Home Medications Medication Instructions Recorded Confirmed Last Taken Type Potassium Chloride [K-Dur] 20 meq PO BID #6 tab 03/31/17 Unknown Rx Promethazine [Phenergan] 25 mg GA Q6HR PRN #20 supp.rect 03/31/17 Unknown Rx Dicyclomine [Bentyl] 10 mg PO TID PRN #20 capsule 10/08/19 Unknown Rx Ibuprofen [Motrin 800 MG tab] 800 mg PO Q8HR PRN #30 tablet 01/17/20 Unknown Rx Famotidine [Pepcid] 20 mg PO Q12H #60 tablet 12/20/20 Unknown Rx Promethazine [Phenergan SUPPOS] 25 mg GA Q6HR PRN #15 supp.rect 12/20/20 Unknown Rx Promethazine [Phenergan] 25 mg PO Q6HR PRN #30 tab 12/20/20 Unknown Rx ED Physical Exam - General Limitations: No Limitations General appearance: alert, in no apparent distress - Head Head exam: Present: atraumatic, normocephalic, normal inspection - Eye Eye exam: Present: normal appearance, PERRL, EOMI Pupils: Present: normal accommodation - ENT ENT exam: Present: normal exam, normal orophraynx, mucous membranes moist, TM's normal bilaterally, normal external ear exam - Neck Neck exam: Present: normal inspection, full ROM - Respiratory Respiratory exam: Present: normal lung sounds bilaterally. Absent: respiratory distress, wheezes, rales, rhonchi, stridor, chest wall tenderness, accessory muscle use, decreased breath sounds, prolonged expiratory - Cardiovascular Cardiovascular Exam: Present: regular rate, normal rhythm, normal heart sounds. Absent: systolic murmur, diastolic murmur, rubs, gallop - GI/Abdominal GI/Abdominal exam: Present: soft, normal bowel sounds, other (Gravid abdomen). Absent: tenderness, guarding, rebound, hyperactive bowel sounds - Extremities Exam Extremities exam: Present: normal inspection, full ROM, normal capillary refill - Back Exam Back exam: Present: normal inspection, full ROM. Absent: tenderness, CVA tenderness (R), CVA tenderness (L), muscle spasm, paraspinal tenderness, vertebral tenderness - Neurological Exam Neurological exam: Present: alert, oriented X3, CN II-XII intact, normal gait, reflexes normal - Psychiatric Psychiatric exam: Present: normal affect, normal mood - Skin Skin exam: Present: warm, dry, intact, normal color. Absent: rash ED Course Vital Signs 12/20/20 03:29 Temperature 97.9 F Pulse Rate 103 H Respiratory 18 Rate Blood Pressure 107/72 O2 Sat by Pulse 97 Oximetry ED Medical Decision Making - Lab Data Result diagrams: 12/20/20 04:21 12/20/20 04:21 - Medical Decision Making This is a A0 30-year-old -Maldivian female with no past medical history and who is approximately 23 weeks gestation presents to the ED with acute onset persistent nausea and vomiting and burning pain in the throat after having intractable nausea and vomiting. Patient states that she was asleep when she started having nausea and vomiting and that the emesis tasted bitter and left a sour taste in her mouth and thereafter she started having sore throat. In the ED, patient is alert and oriented x3 and is not in distress but anxious and tachycardic in triage. Lab test results were reviewed and are all nonactionable. Patient was treated in the ED for nausea and also given antacids and pain medication. On reevaluation, patient's pain is well controlled medications. Patient has not had any nausea or vomiting while in the ED. Based on the patient's history and physical exam findings, the patient symptoms are likely due to GERD complications given the patient's late stage. Patient was therefore discharged home on medications, specifically antacids and antiemetics and was advised to follow-up with her [employer] physician in 5 to 7 days for reevaluation or return to the ED immediately if symptoms get worse. - Differential Diagnosis Gastroenteritis; GERD; gastritis; UTI; dehydration Critical care attestation.: If time is entered above; I have spent that time in minutes in the direct care of this critically ill patient, excluding procedure time. ED Disposition Clinical Impression: Nausea and vomiting in adult patient GERD (gastroesophageal reflux disease) Qualifiers: Esophagitis presence: without esophagitis Qualified Code(s): K21.9 - Gastro-esophageal reflux disease without esophagitis Disposition: TO HOME OR SELFCARE Is pt being admited?: No Does the pt Need Aspirin: No Condition: Stable Instructions: Abdominal Pain (ED), Heartburn, [id number], Nausea and Vomiting, Adult, [id number], Gastroesophageal Reflux Disease, Adult, [id number] Additional Instructions: All lab test results were reviewed and are all nonactionable. Your symptoms are likely due to complications of acid reflux also known as GERD. Therefore take medications with food, drink plenty of fluids and follow-up with your [employer] physician or primary care physician in 5 to 7 days for reevaluation. Return to the ED immediately if symptoms get worse. Prescriptions: Famotidine [Pepcid] 20 mg PO Q12H #60 tablet Promethazine [Phenergan] 25 mg PO Q6HR PRN #30 tab PRN Reason: Nausea Promethazine [Phenergan SUPPOS] 25 mg GA Q6HR PRN #15 supp.rect PRN Reason: Nausea Referrals: DAVID ROSA MD [Staff Physician] - 3-5 Days Time of Disposition: 06:13 Print Language: TURKMEN
[2020-12-20 06:20] VITALS: BP 96/59
== END 2020-12-20 06:49 | disposition home or self-care (01) ==
LOC: ED 03:21
DX: O99.612 Diseases of the digestive system complicating pregnancy, second trimester (principal); K21.9 Gastro-esophageal reflux disease without esophagitis; O21.8 Other vomiting complicating pregnancy; Z3A.23 23 weeks gestation of pregnancy; Z98.890 Other specified postprocedural states; Z79.1 Long term (current) use of non-steroidal anti-inflammatories (NSAID); Z79.899 Other long term (current) drug therapy
CPT/HCPCS: 36415; 80053; 81001; 83690; 85025